=== PATIENT | male | born 1945 | race Caucasian/White ===

== ENCOUNTER → 2019-12-07 | Outpatient (CLI) | payer OTHER ==
[~2019-12-07] MED LIST: BICALUTAMIDE50 MG PO; COMBIVENT RESPIM4 GM IH; DILTIAZEM 24HR120 M1 PO; ELIQUIS5 MG PO; ESOMEPRAZOLE MA40 MG PO; FLOVENT HFA12 G1 INH; FUROSEMIDE40 MG PO; GABAPENTIN300 MG PO; LEVALBUTER0.63 MG/3 NEB; METOPROLOL SUCC25 MG PO
[2019-12-07 13:54] LABS: BASOPHILS # (AUTO) 0.1 (0.0-0.1); BASOPHILS % 0.6 % (0.0-1.0); EOSINOPHILS # (AUTO) 0.6 (0.0-0.4); EOSINOPHILS % 6.8 % (0.0-6.0); HEMATOCRIT 35.1 % (38.2-49.6); LYMPHOCYTES % 23.6 % (18.0-39.1); MEAN CORPUSCULAR HEMOGLOBIN 28.1 pg (28-32); MEAN CORPUSCULAR HGB CONC 31.3 g/dL (31-35); MEAN CORPUSCULAR VOLUME 89.5 fL (81-99); MONOCYTES # (AUTO) 0.6 (0.2-0.8); MONOCYTES % 7.3 % (4.4-11.3); NEUTROPHILS # (AUTO) 5.2 (2.1-6.9); NEUTROPHILS % 61.3 % (38.7-80.0); PLATELET COUNT 306 x10e3/uL (140-360); RED BLOOD COUNT 3.92 x10e6/uL (4.3-5.7); RED CELL DISTRIBUTION WIDTH 13.8 % (11.7-14.4)
== END ==
LOC: RAD 05:00 → EDSTATUS 12-17 07:00
PROVIDERS: ATTEND Internal Medicine Gastroenterology
DX: Z01.818 Encounter for other preprocedural examination (principal); D50.9 Iron deficiency anemia, unspecified; I10 Essential (primary) hypertension; Z71.3 Dietary counseling and surveillance; E66.3 Overweight; Z86.010 Personal history of colon polyps
CPT/HCPCS: 36415; 85025; 93005